=== PATIENT | male | born 1945 | race Caucasian/White ===

== ENCOUNTER → 2023-10-08 07:22 | Outpatient (REF) | payer MEDICARE, SELFPAY | LOC: DHCBS HW 07:22 | PROVIDERS: ATTENDING PHYSICIAN Student in an Organized Health Care Education/Training Program | DX: M79.89 Other specified soft tissue disorders (principal); R06.01 Orthopnea | CPT/HCPCS: 93306 ==

== ENCOUNTER → 2023-10-21 06:29 | Day surgery (SDC) | payer MEDICARE, SELFPAY ==
[2023-10-21 13:44] VITALS: BMI 36.6
[2023-10-21 13:45] VITALS: BP 157/76; BMI 36.6
[2023-10-21 15:53] VITALS: BP 112/58
[2023-10-21 15:54] VITALS: BP 112/58
[2023-10-21 16:00] VITALS: BP 112/58
[2023-10-21 16:08] VITALS: BP 146/74
[2023-10-21 16:24] VITALS: BP 116/68
== END ==
LOC: SDS 06:29
PROVIDERS: ATTENDING PHYSICIAN Surgery
DX: D12.4 Benign neoplasm of descending colon (principal); K63.5 Polyp of colon; K57.30 Diverticulosis of large intestine without perforation or abscess without bleeding; K64.9 Unspecified hemorrhoids
CPT/HCPCS: 45338; 45331; 88305

== ENCOUNTER → 2024-05-10 06:51 | Outpatient (REF) | payer MEDICARE, SELFPAY | LOC: PAVMRI 06:51 | PROVIDERS: ATTENDING PHYSICIAN Student in an Organized Health Care Education/Training Program | DX: M25.561 Pain in right knee (principal) | CPT/HCPCS: 73721 ==

== ENCOUNTER → 2024-08-04 07:56 | Outpatient (REF) | payer MEDICARE, SELFPAY | LOC: RSP 07:56 | PROVIDERS: ATTENDING PHYSICIAN Student in an Organized Health Care Education/Training Program | DX: R06.02 Shortness of breath (principal) | CPT/HCPCS: 94727; 94729; 88738; 94060 ==

== ENCOUNTER 2024-08-23 13:13 | Outpatient (RCR) | payer MEDICARE, SELFPAY | END 2024-08-23 23:59 | disposition home or self-care (01) | LOC: RPT 13:13 | PROVIDERS: ATTENDING PHYSICIAN Orthopaedic Surgery; FAMILY PHYSICIAN Student in an Organized Health Care Education/Training Program | DX: M22.41 Chondromalacia patellae, right knee (principal); M17.11 Unilateral primary osteoarthritis, right knee; Z73.6 Limitation of activities due to disability | CPT/HCPCS: 97110; 97112; 97162 ==

== ENCOUNTER → 2024-09-12 07:04 | Outpatient (REF) | payer MEDICARE, SELFPAY | LOC: RAD 07:04 | PROVIDERS: ATTENDING PHYSICIAN Internal Medicine Interventional Cardiology; FAMILY PHYSICIAN Student in an Organized Health Care Education/Training Program; REFERRING PHYSICIAN Optometrist | DX: I10 Essential (primary) hypertension (principal); I48.91 Unspecified atrial fibrillation; I25.10 Atherosclerotic heart disease of native coronary artery without angina pectoris; I65.29 Occlusion and stenosis of unspecified carotid artery | CPT/HCPCS: 93880 ==

== ENCOUNTER 2024-09-22 15:57 | Outpatient (RCR) | payer MEDICARE, SELFPAY | END 2024-09-23 07:31 | disposition home or self-care (01) | LOC: RPT 15:57 | PROVIDERS: ATTENDING PHYSICIAN Orthopaedic Surgery; FAMILY PHYSICIAN Student in an Organized Health Care Education/Training Program | DX: M22.41 Chondromalacia patellae, right knee (principal); M17.11 Unilateral primary osteoarthritis, right knee; Z73.6 Limitation of activities due to disability | CPT/HCPCS: 97110; 97530 ==

== ENCOUNTER → 2025-03-13 09:29 | Outpatient (REF) | payer MEDICARE, SELFPAY | LOC: HWRAD 09:29 | PROVIDERS: ATTENDING PHYSICIAN Student in an Organized Health Care Education/Training Program | DX: R22.1 Localized swelling, mass and lump, neck (principal) | CPT/HCPCS: 76536 ==

== ENCOUNTER → 2025-06-26 14:15 | Outpatient (REF) | payer MEDICARE, SELFPAY | LOC: RAD 14:15 | PROVIDERS: ATTENDING PHYSICIAN Physician Assistant | DX: M25.551 Pain in right hip (principal) | CPT/HCPCS: 73502 ==